=== PATIENT | female | born 1975 | race Caucasian/White ===

== ENCOUNTER 2016-07-15 17:56 | Emergency (ER) | payer BC ==
[2016-07-15 18:16] LABS: BASOPHIL# 0.1 X 10^3uL (0.0-0.1); BASOPHILS 0.6 % (0.0-2.0); EOSINOPHILS 0.4 % (0.0-6.0); EOSINOPHILS# 0.1 X 10^3uL (0.0-0.4); HEMOGLOBIN 16.3 g/dL (12.0-16.0); LYMPHOCYTES 44.9 % (20.0-40.0); MEAN CELL VOLUME 94.2 fL (80.0-100.0); MEAN CORPUS. HGB CONCENTRATION 34.6 g/dL (32.0-36.0); MEAN CORPUSCULAR HEMOGLOBIN 32.6 pg (29.0-35.0); MEAN PLATELET VOLUME 7.5 fL (7.4-10.4); MONOCYTES 5.2 % (2.0-10.0); MONOCYTES# 0.7 X 10^3uL (0.2-1.0); NEUTROPHILS 48.9 % (54.0-75.0); NEUTROPHILS# 6.4 X 10^3uL (2.6-6.7); PLATELET COUNT 295 X 10^3uL (130-440); RED BLOOD COUNT 4.99 X 10^6uL (4.20-6.10); RED CELL DISTRIBUTION WIDTH 11.7 % (11.5-14.5); WHITE BLOOD COUNT 13.3 X 10^3uL (3.9-10.7)
[2016-07-15] MEDS ORDERED: LACTATED RINGERS 1,000 ML IV ONE (18:21)
[2016-07-15 18:27] LABS: ALKALINE PHOSPHATASE 52 U/L (38-126); AST 31 U/L (14-36); BILIRUBIN, TOTAL 0.8 mg/dL (0.2-1.3); BLOOD UREA NITROGEN 13 mg/dL (7-17); CALCIUM 9.3 mg/dL (8.4-10.2); CHLORIDE 102 mmol/L (98-107); CREATINE KINASE 212 U/L (30-135); CREATININE 0.8 mg/dL (0.5-1.0); EST GLOMERULAR FILTRATION RATE > 60 mL/min; GLUCOSE 125 mg/dL (70-100); LIPASE 126 U/L (23-300); POTASSIUM 2.8 mmol/L (3.5-5.1); SODIUM 139 mmol/L (137-145)
[2016-07-15 18:28] LABS: ETHYL ALCOHOL < 10 mg/dL (<10)
[2016-07-15] MEDS ORDERED: HYDROmorphone HCL 1 MG/ML SYR ONE ×2 (18:29→18:48)
[2016-07-15] MEDS ORDERED: LORazepam 2 MG/ML INJ ONE (18:30)
[2016-07-15] MEDS ORDERED: POTASSIUM CHLORIDE 100 ML IV ONE (18:46)
[2016-07-15 18:49] LABS: TROPONIN I < 0.012 ng/mL (0.00-0.034)
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
--- NOTE | 2016-07-18 17:10 | RADIOLOGY REPORT ---
Views of both hands demonstrate the known soft tissue defects. No bony abnormality is identified. The visualized joints appear unremarkable. IMPRESSION: Multiple bilateral soft tissue defects. No bony injury is identified. MTDD
== END 2016-07-15 19:07 | disposition short-term general hospital (02) ==
LOC: ER 17:56
DX: T21.31XA Burn of third degree of chest wall, initial encounter (principal); T23.342A Burn of third degree of multiple left fingers (nail), including thumb, initial encounter; T23.341A Burn of third degree of multiple right fingers (nail), including thumb, initial encounter; T23.392A Burn of third degree of multiple sites of left wrist and hand, initial encounter; T23.391A Burn of third degree of multiple sites of right wrist and hand, initial encounter; T31.11 Burns involving 10-19% of body surface with 10-19% third degree burns; W86.1XXA Exposure to industrial wiring, appliances and electrical machinery, initial encounter; Y92.019 Unspecified place in single-family (private) house as the place of occurrence of the external cause
CPT/HCPCS: 70450; 80048; 80320; 82247; 82550; 83690; 84075; 84450; 84484; 84703; 85025; 93005; 96365; 96375; 99285; G0390; J1170; J2060; J3480; J7120